=== PATIENT | male | born 1945 | race Caucasian/White ===

== ENCOUNTER 2019-06-21 09:30 | Inpatient (IN) | payer MEDICARE, BC ==
[2019-06-21] MEDS ORDERED: Sodium Chloride 0.9% 10 ML Syringe FLUSH PRN (13:51)
[2019-06-21] MEDS ORDERED: Pantoprazole 40 MG Vial IVPUSH SCH (14:00)
[2019-06-21 14:28] LABS: CHLORIDE,CL 99 mEq/L (98-106); SODIUM,NA 139 mEq/L (136-145)
[2019-06-21] MEDS ORDERED: Enoxaparin 40 MG/0.4 ML Syringe SUBCUT SCH (15:00)
[2019-06-21] MEDS: Clindamycin Phosphate in D5W 300 MG in Premix Bag 1 BAG IV SCH ×4 (15:02→20:59)
[2019-06-21] MEDS ORDERED: Furosemide 40 MG Tab PO SCH (16:00)
[2019-06-21] MEDS ORDERED: Polyvinyl Alcohol 1.4% Ophth Soln 15 ML Bottle ONE (16:12)
[2019-06-21] MEDS: Pantoprazole 40 MG Vial IVPUSH SCH (19:46)
[2019-06-21] MEDS: Metoprolol Tartrate 50 MG Tab PO SCH (19:48)
[2019-06-21] MEDS: Formoterol/Mometasone 200-5 MCG 8.8 GM Inhaler IH SCH (19:49)
[2019-06-21] MEDS ORDERED: Simvastatin 20 MG Tab PO SCH (20:00)
[2019-06-22] MEDS: Clindamycin Phosphate in D5W 300 MG in Premix Bag 1 BAG IV SCH ×4 (02:46→09:06)
[2019-06-22] MEDS ORDERED: Allopurinol 100 MG Tab PO SCH (08:00)
[2019-06-22] MEDS ORDERED: Citalopram 10 MG Tab PO SCH (08:00)
[2019-06-22] MEDS ORDERED: Polyvinyl Alcohol 1.4% Ophth Soln 15 ML Bottle EYEBOTH SCH (08:00)
[2019-06-22] MEDS ORDERED: SODIUM CHLORIDE EYEBOTH SCH (08:00)
[2019-06-22] MEDS ORDERED: Celecoxib 100 MG Cap PO SCH (08:00)
[2019-06-22] MEDS ORDERED: [UNRECOGNIZED DRUG - OTHER] EYEBOTH SCH (08:00)
[2019-06-22] MEDS ORDERED: Furosemide 40 MG Tab PO SCH (08:00)
[2019-06-22] MEDS ORDERED: Acetaminophen 500 MG Tab PO PRN (08:16)
--- NOTE | 2019-06-22 08:21 | PCM.DCSUM1 ---
Discharge Summary - Discharge Data Discharge Date: 06/22/19 Discharge Disposition: DC/Tfer to SNF 03 Condition: Good - Referral to Home Health Primary Care Physician: Chava Reed MD - Discharge Diagnosis/Problem(s) (1) Cellulitis of leg, right SNOMED Code(s): 389734339 ICD Code: L03.115 - CELLULITIS OF RIGHT LOWER LIMB Status: Acute (2) Morbidly obese SNOMED Code(s): 480673088 ICD Code: E66.01 - MORBID (SEVERE) OBESITY DUE TO EXCESS CALORIES Status: Acute - Patient Summary/Data Hospital Course: Armando is a 74 year old male who was admitted to the hospital 06/21/2019 with cellulitis of right thigh. Did have US completed of RLE which was negative for DVT. Labs completed this morning reveal WBC of 9.9 and CRP of 4.8. Patient was started on IV clindamycin. Will be discharged home on PO clindamycin QID x 7 days. Will have repeat lab work, including CBC, BMP, and CRP in 1 week. Recommend jail staff do cool compress to affected area TID. - Patient Instructions Diet: Usual Diet as Tolerated Activity: As Tolerated Notify Provider of: Fever, Increased Pain, Swelling and Redness - Discharge Plan *PRESCRIPTION DRUG MONITORING PROGRAM REVIEWED*: Not Applicable *COPY OF PRESCRIPTION DRUG MONITORING REPORT IN PATIENT ELIZABETH: Not Applicable Prescriptions/Med Rec: Clindamycin HCl 300 mg PO QID 7 Days #28 capsule Home Medications: Home Meds Allopurinol [Zyloprim] 100 mg PO DAILY 06/21/19 [History] Celecoxib 200 mg PO DAILY 06/21/19 [History] Citalopram [Citalopram HBr] 20 mg PO DAILY 06/21/19 [History] Dextran 70/Hypromellose [Artificial Tears] 1 drop EYEBOTH DAILY MDD 4 06/21/19 [ History] Fluticasone/Salmeterol [Advair 500-50] 1 puff INH BID 06/21/19 [History] Furosemide 80 mg PO DAILY 06/21/19 [History] Furosemide [Lasix] 40 mg PO DAILY 06/21/19 [History] L.acidoph,Paracasei, B.lactis [Probiotic] 10 mg PO BID 06/21/19 [History] Metoprolol Tartrate 50 mg PO BID 06/21/19 [History] Simvastatin [Zocor] 20 mg PO DAILY 06/21/19 [History] Sodium Chloride 5% [María 128 5% Ophth Oint] 1 strip EYEBOTH DAILY 06/21/19 [ History] Triamcinolone Acetonide [Triamcinolone Acetonide 0.1% Crm] 15 gm TOP BID [History] Clindamycin HCl 300 mg PO QID 7 Days #28 capsule 06/22/19 [Rx] Patient Handouts: Cellulitis, Adult, [id number] - Discharge Summary/Plan Comment DC Time >30 min.: No - General Info Date of Service: 06/22/19 Admission Dx/Problem (Free Text: Cellulitis Right lower extremity Morbidly Obese Subjective Update: Armando reports he is feeling fine today. Does complain of uncomfortable beds etc. Wishes to go back to [place]. No worsening of redness today. Has been afebrile. Functional Status: Reports: Pain Controlled, Tolerating Diet. Denies: New Symptoms - Review of Systems General: Denies: Fever Pulmonary: Reports: No Symptoms Cardiovascular: Reports: No Symptoms Gastrointestinal: Reports: No Symptoms Skin: Reports: Other (redness right thigh) Neurological: Reports: No Symptoms - Patient Data Vitals - Most Recent: Last Vital Signs Temp 98.3 F 06/22/19 04:00 Pulse 81 06/22/19 04:00 Resp 22 H 06/22/19 04:00 BP 117/47 L 06/22/19 04:00 Pulse Ox 98 06/22/19 04:00 Weight - Most Recent: 488 lb 8 oz I&O - Last 24 hours: Intake & Output 06/21/19 06/22/19 06/22/19 22:59 06:59 14:59 Intake Total 100 Balance 100 Lab Results - Last 24 hrs: Laboratory Results - last 24 hr 06/21/19 06/21/19 Range/Units 13:51 13:51 WBC 9.9 (5.0-10.0) 10^3/uL RBC 3.72 L (4.50-6.00) 10^6/uL Hgb 11.8 L (14.0-18.0) g/dL Hct 37.7 L (40.0-54.0) % MCV 101.3 H (82.0-94.0) fL MCH 31.7 (27.0-32.0) pg MCHC 31.3 L (33.0-38.0) g/dL RDW Coeff of Hugh 12.9 (11.0-15.0) % Plt Count 148 L (150-400) 10^3/uL Neut % (Auto) 72.7 (35-85) % Lymph % (Auto) 16.6 (10-55) % [place] % (Auto) 8.9 (0-16) % Eos % (Auto) 1.7 (0-5) % Baso % (Auto) 0.1 (0-3) % Neut # (Auto) 7.17 H (1.80-7.00) 10^3/uL Lymph # (Auto) 1.64 (1.00-4.80) 10^3/uL [place] # (Auto) 0.88 H (0.00-0.80) 10^3/uL Eos # (Auto) 0.17 (0.00-0.45) 10^3/uL Baso # (Auto) 0.01 10^3/uL Sodium 139 (136-145) mEq/L Potassium 4.2 (3.5-5.0) mEq/L Chloride 99 (98-106) mEq/L Carbon Dioxide 38 H (21-32) mmol/L BUN 26 H (7-18) mg/dL Creatinine 1.0 (0.7-1.3) mg/dL Est Cr Clr Drug Dosing 54.67 mL/min Estimated GFR (MDRD) > 60 (>=60) mL/min Glucose 103 H (75-99) mg/dL Calcium 8.5 (8.4-10.1) mg/dL C-Reactive Protein 4.8 H (0.2-0.8) mg/dL Med Orders - Current: Current Medications Allopurinol (Zyloprim) 100 mg PO DAILY [facility] Artificial Tears (Liquitears 1.4% Ophth Soln) 0 ml EYEBOTH DAILY [facility] Celecoxib (Celebrex) 200 mg PO DAILY [facility] Citalopram Hydrobromide (Celexa) 20 mg PO DAILY [facility] Enoxaparin Sodium (Lovenox) 40 mg SUBCUT Q24H [facility] Last Admin: 06/21/19 15:03 Dose: 40 mg Furosemide (Lasix) 80 mg PO DAILY [facility] Furosemide (Lasix) 40 mg PO DAILY@1600 [facility] Last Admin: 06/21/19 15:01 Dose: 40 mg Clindamycin Phosphate 300 mg/ (Premix) 50 mls @ 100 mls/hr IV Q6H [facility] Last Admin: 06/22/19 02:46 Dose: 100 mls/hr Metoprolol Tartrate (Lopressor) 50 mg PO BID [facility] Last Admin: 06/21/19 19:48 Dose: 50 mg Mometasone Furoate/Formoterol Fumar (Dulera 200-5 Mcg) 2 puff IH BID [facility] Last Admin: 06/21/19 19:49 Dose: 2 puff Non-Formulary Medication (Sodium Chloride 5% [María 128 5% Ophth Oint]) 1 strip EYEBOTH DAILY [facility] Pantoprazole Sodium (Protonix Iv) 40 mg IVPUSH 0800,2000 [facility] Last Admin: 06/21/19 19:46 Dose: Not Given Simvastatin (Zocor) 20 mg PO BEDTIME [facility] Last Admin: 06/21/19 19:39 Dose: 20 mg Sodium Chloride (Saline Flush) 10 ml FLUSH ASDIRECTED PRN PRN Reason: Keep Vein Open Discontinued Medications Artificial Tears (Liquitears 1.4% Ophth Soln) Confirm Administered Dose 15 ml .ROUTE .STK-MED ONE Stop: 06/21/19 16:13 Last Admin: 06/21/19 16:16 Dose: Not Given Pantoprazole Sodium (Protonix Iv) 40 mg IVPUSH Q12H [facility] Last Admin: 06/21/19 15:03 Dose: 40 mg - Exam Quality Assessment: Reports: DVT Prophylaxis General: Reports: Alert, Oriented, No Acute Distress Lungs: Reports: Clear to Auscultation, Normal Respiratory Effort Cardiovascular: Reports: Regular Rate, Regular Rhythm Extremities: Increased Warmth (right posterior thigh), Redness (right posterior thigh), Other (tenderness right posterior thigh) Wound/Incisions: Reports: Erythema Improving. Denies: Drainage Neurological: Reports: No New Focal Deficit Psy/Mental Status: Reports: Alert, Normal Affect, Normal Mood
[2019-06-22] MEDS: Metoprolol Tartrate 50 MG Tab PO SCH (08:48)
[2019-06-22] MEDS: Pantoprazole 40 MG Vial IVPUSH SCH (08:49)
[2019-06-22] MEDS: Formoterol/Mometasone 200-5 MCG 8.8 GM Inhaler IH SCH (09:06)
== END 2019-06-22 10:30 | DRG 603 ==
LOC: UNDOADMIN 09:30 → CC.MS 09:30
PROVIDERS: ADMIT Family Medicine; ATTEND Family Medicine
DX: L03.115 Cellulitis of right lower limb (principal); Z68.45 Body mass index [BMI] 70 or greater, adult; E66.01 Morbid (severe) obesity due to excess calories; J44.9 Chronic obstructive pulmonary disease, unspecified; M19.90 Unspecified osteoarthritis, unspecified site; M10.9 Gout, unspecified; G47.30 Sleep apnea, unspecified; R03.0 Elevated blood-pressure reading, without diagnosis of hypertension; Z88.1 Allergy status to other antibiotic agents; Z88.0 Allergy status to penicillin; Z88.8 Allergy status to other drugs, medicaments and biological substances; Z90.49 Acquired absence of other specified parts of digestive tract; Z90.89 Acquired absence of other organs; Z79.899 Other long term (current) drug therapy
CPT/HCPCS: 36415; 80048; 85025; 86140; 93971-RT; 94640; 94761; A9270-GY; C9113; J1650; J3490

== ENCOUNTER 2020-09-15 15:38 | Emergency (ER) | payer MEDICARE, BC, MEDICAID ==
--- NOTE | 2020-09-15 16:32 | EDM.PDOC ---
ED HPI GENERAL MEDICAL PROBLEM - General Chief Complaint: Neurological Problem Stated Complaint: Unresponsive Time Seen by Provider: 09/15/20 15:48 Source of Information: Reports: EMS, Family, Intermediate Records History Limitations: Reports: Altered Mental Status - History of Present Illness INITIAL COMMENTS - FREE TEXT/NARRATIVE: Armando is a 75 year old male who presents to the ED via EMS with lethargy. He currently resides at [facility]. Has reportedly been declining the last week, getting more and more weak. Per brother, who is POA, he reports since Tuesday it has been worse. Brother reports he has gotten more and more lethargic and has required more oxygen as the day progressed today, so he wanted him seen. He was seen by Dr. Reed on rounds on Tuesday. Did have lab work completed at that time, which revealed pancytopenia. Was recommended to have CT scan of his head at that time due to concerns for stroke with worsening confusion, however patient unable to fit in CT scanner due to morbid obesity. Brother and patient did not want to go to [place] for CT scan at that time, nor does his brother wish to proceed with that at this time. Brother relays that he is code 2. Brother feels he is unresponsive due to dose of hydroxyzine that was given to him on Tuesday. He reports he last received dose of that Tuesday for panic attack. Brother wishes for him to "get IV fluids to see if he comes around over the next few days." Upon arrival, patient is unresponsive to painful stimuli. BP and pulse stable. O2 92% on 10 L nonrebreather. Apparently has been requiring anywhere from 5-8 L of oxygen the last few days. Has been afebrile. Onset: Gradual Location: Reports: Generalized Associated Symptoms: Reports: Confusion, Shortness of Breath, Weakness. Denies: Chest Pain, Cough, cough w sputum, Diaphoresis, Fever/Chills, Loss of Appetite, Nausea/Vomiting, Rash, Seizure, Syncope - Related Data Allergies Allergy/AdvReac Type Severity Reaction Status Date / Time cefdinir Allergy Cannot Verified 09/15/20 17:45 Remember cephalexin Allergy Rash Verified 09/15/20 17:45 Penicillins Allergy Rash Verified 09/15/20 17:45 terazosin Allergy Dizziness Verified 09/15/20 17:45 Home Meds: Home Meds Citalopram [Citalopram HBr] 30 mg PO DAILY 06/21/19 [History] Dextran 70/Hypromellose [Artificial Tears] 1 drop EYEBOTH DAILY MDD 4 06/21/19 [History] Fluticasone/Salmeterol [Advair 500-50] 1 puff INH BID 06/21/19 [History] Furosemide 80 mg PO BID 06/21/19 [History] L.acidoph,Paracasei, B.lactis [Probiotic] 10 mg PO BID 06/21/19 [History] Metoprolol Tartrate 50 mg PO BID 06/21/19 [History] Simvastatin [Zocor] 20 mg PO DAILY 06/21/19 [History] Sodium Chloride 5% [María 128 5% Ophth Oint] 1 strip EYEBOTH DAILY 06/21/19 [History] allopurinoL [Zyloprim] 100 mg PO DAILY 06/21/19 [History] Fluticasone Propionate [Flonase Allergy Relief] 2 sprays NASBOTH ASDIRECTED 09/15/20 [History] Loratadine 10 mg PO DAILY 09/15/20 [History] guaiFENesin [Guaifenesin] 400 mg PO Q4H PRN 09/15/20 [History] guaiFENesin/Dextromethorphan [Tussin Dm Liquid] 10 ml PO Q4H PRN 09/15/20 [History] hydrOXYzine HCL [Hydroxyzine HCl] 25 mg PO TID PRN 09/15/20 [History] Past Medical History HEENT History: Reports: Other (See Below) Other HEENT History: Dry eye, Corneal injury (left), Cardiovascular History: Reports: Heart Failure, High Cholesterol, Hypertension Respiratory History: Reports: COPD, Sleep Apnea, SOB Other Respiratory History: Supplemental O2 (3L day, 7L night) Gastrointestinal History: Reports: Other (See Below) Other Gastrointestinal History: Morbid obesity Musculoskeletal History: Reports: Arthritis, Gout Psychiatric History: Reports: Depression Dermatologic History: Reports: Cellulitis - Infectious Disease History Infectious Disease History: Reports: MRSA Other Infectious Disease History: 07/20/19 Right leg wound - Past Surgical History GI Surgical History: Reports: Bariatric Procedure, Hernia, Abdominal, Hernia, Inguinal Male Surgical History: Reports: Cystectomy Social & Family History - Family History Family Medical History: Unobtainable - Alcohol Use Alcohol Use History: No ED ROS GENERAL - Review of Systems Review Of Systems: Unable To Obtain Reason Not Obtained: Unresponsive Constitutional: Reports: Weakness. Denies: Fever Respiratory: Reports: Shortness of Breath. Denies: Cough Cardiovascular: Reports: Edema Neurological: Reports: Confusion, Difficulty Walking Psychiatric: Reports: Anxiety - Physical Exam Exam: See Below Exam Limited By: Altered Mental Status General Appearance: Lethargic, Obese, Other (unresponsive to painful stimuli) Eye Exam: Bilateral Eye: PERRL Head Exam: Atraumatic, Normocephalic Neck: Supple Respiratory/Chest: Decreased Breath Sounds, Crackles, Prolonged Expiration Cardiovascular: Regular Rate, Rhythm, Other (distant heart tones) GI/Abdominal: Normal Bowel Sounds, Soft Neuro Exam (Abbreviated): Unresponsive Extremities: Pedal Edema (3+ pitting BLE) Skin Exam: Cool Course - Vital Signs Last Recorded V/S: Last Vital Signs Temp 96.7 F L 09/15/20 16:20 Pulse 67 09/15/20 16:20 Resp 12 09/15/20 16:20 BP 106/59 L 09/15/20 16:20 Pulse Ox 88 L 09/15/20 16:20 - Orders/Labs/Meds Orders: Active Orders 24 hr Category Date Time Status Chest 1V Frontal [CR] Stat Exams 09/15/20 15:50 Taken CULTURE BLOOD [BC] Stat Lab 09/15/20 16:11 Received CULTURE BLOOD [BC] Stat Lab 09/15/20 16:11 Received Blood Culture x2 Reflex Set [OM.PC] Stat Oth 09/15/20 15:51 Ordered EKG 12 Lead [EK] Stat Ther 09/15/20 15:49 Ordered Labs: Laboratory Tests 09/15/20 09/15/20 09/15/20 Range/Units 16:11 16:11 16:11 WBC 6.3 (5.0-10.0) 10^3/uL RBC 3.55 L (4.50-6.00) 10^6/uL Hgb 11.9 L (14.0-18.0) g/dL Hct 38.8 L (40.0-54.0) % MCV 109.3 H (82.0-94.0) fL MCH 33.5 H (27.0-32.0) pg MCHC 30.7 L (33.0-38.0) g/dL RDW Coeff of Hugh 15.5 H (11.0-15.0) % Plt Count 60 L (150-400) 10^3/uL Add Manual Diff Yes Neutrophils % (Manual) 60 (35-85) % Band Neutrophils % 8 H (0-5) % Lymphocytes % (Manual) 25 (21-55) % Monocytes % (Manual) 7 (2-12) % D-Dimer, Quantitative 0.85 H (0.00-0.50) Sodium 143 (136-145) mEq/L Potassium 5.2 H D (3.5-5.0) mEq/L Chloride 100 (98-106) mEq/L Carbon Dioxide 46 H* (21-32) mmol/L BUN 30 H (7-18) mg/dL Creatinine 1.1 (0.7-1.3) mg/dL Est Cr Clr Drug Dosing TNP Estimated GFR (MDRD) > 60 (>=60) mL/min Glucose 105 H D (75-99) mg/dL Lactic Acid (0.4-2.0) mmol/L Calcium 9.1 (8.4-10.1) mg/dL Total Bilirubin 1.5 H (0.0-1.0) mg/dL AST 22 (15-37) U/L ALT 20 (12-78) U/L Alkaline Phosphatase 184 H (46-116) U/L Lactate Dehydrogenase 175 (100-190) U/L Troponin I < 0.017 (0.00-0.06) ng/mL C-Reactive Protein 2.3 H (0.2-0.8) mg/dL NT-Pro-B Natriuret Pep 1227 H (0-1000) pg/mL Total Protein 7.8 (6.4-8.2) g/dL Albumin 3.2 L (3.4-5.0) g/dL 09/15/20 Range/Units 16:11 WBC (5.0-10.0) 10^3/uL RBC (4.50-6.00) 10^6/uL Hgb (14.0-18.0) g/dL Hct (40.0-54.0) % MCV (82.0-94.0) fL MCH (27.0-32.0) pg MCHC (33.0-38.0) g/dL RDW Coeff of Hugh (11.0-15.0) % Plt Count (150-400) 10^3/uL Add Manual Diff Neutrophils % (Manual) (35-85) % Band Neutrophils % (0-5) % Lymphocytes % (Manual) (21-55) % Monocytes % (Manual) (2-12) % D-Dimer, Quantitative (0.00-0.50) Sodium (136-145) mEq/L Potassium (3.5-5.0) mEq/L Chloride (98-106) mEq/L Carbon Dioxide (21-32) mmol/L BUN (7-18) mg/dL Creatinine (0.7-1.3) mg/dL Est Cr Clr Drug Dosing Estimated GFR (MDRD) (>=60) mL/min Glucose (75-99) mg/dL Lactic Acid 0.6 (0.4-2.0) mmol/L Calcium (8.4-10.1) mg/dL Total Bilirubin (0.0-1.0) mg/dL AST (15-37) U/L ALT (12-78) U/L Alkaline Phosphatase (46-116) U/L Lactate Dehydrogenase (100-190) U/L Troponin I (0.00-0.06) ng/mL C-Reactive Protein (0.2-0.8) mg/dL NT-Pro-B Natriuret Pep (0-1000) pg/mL Total Protein (6.4-8.2) g/dL Albumin (3.4-5.0) g/dL Meds: Medications Discontinued Medications Generic Name Dose Route Start Last Admin Trade Name Freq PRN Reason Stop Dose Admin Furosemide 40 mg 09/15/20 16:52 09/15/20 17:14 Lasix IVPUSH 09/15/20 16:53 40 mg ONETIME ONE Administration Sodium Chloride 1,000 mls @ 50 mls/hr 09/15/20 16:45 Sodium Chloride 0.45% IV ASDIRECTED ERIKA - Re-Assessments/Exams Free Text/Narrative Re-Assessment/Exam: 09/15/20 16:30 Talked with patient's brother regarding patient status. Do have concerns patient may have had a stroke, given unresponsiveness. Unable to proceed with CT scan locally due to patient's size. He is morbidly obese. Discussed with brother that we would have to transfer to [place] in order to proceed with CT scan to confirm this as cause of patient's unresponsiveness. Brother does not wish to do this. He wishes him to be kept comfortable. He feels that recent medications may be contributing to lethargy. He has reportedly been asking SNF staff to give him IVF as he feels that will help him. He wishes to try this to see if he "turns around." Reports they will decide to stop IVF if they feel they are not helping. Did discuss my concerns given CHF and risk for fluid overload. Departure - Departure Time of Disposition: 16:36 Disposition: Home, Self-Care 01 Condition: Poor Clinical Impression: Palliative care status, Morbidly obese, Hypoxia Altered mental status Qualifiers: Altered mental status type: unspecified Qualified Code(s): R41.82 - Altered mental status, unspecified - Discharge Information *PRESCRIPTION DRUG MONITORING PROGRAM REVIEWED*: Not Applicable *COPY OF PRESCRIPTION DRUG MONITORING REPORT IN PATIENT ELIZABETH: Not Applicable Referrals: Chava Reed MD [Primary Care Provider] - Forms: ED Department Discharge Additional Instructions: - 1/2 NS to infuse at 20 mls/hr x 72 hours. May discontinue sooner if family wishes to stop care. - Continue to keep oxygen in place. Currently on 15 L Non-rebreather - Family wishes to keep patent comfortable but requests IVF for the next 72 hours Sepsis Event Note (ED) - Focused Exam Vital Signs: Vital Signs Temp Pulse Resp BP Pulse Ox 09/15/20 16:20 96.7 F L 67 12 106/59 L 88 L 09/15/20 16:17 97.1 F 67 11 L 113/67 90 L 09/15/20 15:40 95 F L 66 12 125/78 89 L - Problem List & Annotations (1) Palliative care status SNOMED Code(s): 575153821 Code(s): Z51.5 - ENCOUNTER FOR PALLIATIVE CARE Status: Acute (2) Congestive heart failure SNOMED Code(s): 82171431 Code(s): I50.9 - HEART FAILURE, UNSPECIFIED Status: Acute (3) Hypercapnemia SNOMED Code(s): 40162590 Code(s): R06.89 - OTHER ABNORMALITIES OF BREATHING Status: Acute (4) Altered mental status SNOMED Code(s): 084932231 Code(s): R41.82 - ALTERED MENTAL STATUS, UNSPECIFIED Status: Acute Qualifiers: Altered mental status type: unspecified Qualified Code(s): R41.82 - Altered mental status, unspecified (5) Hypoxia SNOMED Code(s): 330831612 Code(s): R09.02 - HYPOXEMIA Status: Acute (6) Morbidly obese SNOMED Code(s): 050146838 Code(s): E66.01 - MORBID (SEVERE) OBESITY DUE TO EXCESS CALORIES Status: Acute - Problem List Review Problem List Initiated/Reviewed/Updated: Yes - My Orders Last 24 Hours: My Active Orders 09/15/20 15:49 EKG 12 Lead [EK] Stat 09/15/20 15:50 Chest 1V Frontal [CR] Stat 09/15/20 15:51 Blood Culture x2 Reflex Set [OM.PC] Stat 09/15/20 16:11 CULTURE BLOOD [BC] Stat CULTURE BLOOD [BC] Stat - Assessment/Plan Last 24 Hours: My Active Orders 09/15/20 15:49 EKG 12 Lead [EK] Stat 09/15/20 15:50 Chest 1V Frontal [CR] Stat 09/15/20 15:51 Blood Culture x2 Reflex Set [OM.PC] Stat 09/15/20 16:11 CULTURE BLOOD [BC] Stat CULTURE BLOOD [BC] Stat Assessment:: Palliative Care Status Altered Mental Status Congestive Heart Failure Hypercapnia Morbid Obesity Hypoxia Plan: Brother wishes to continue with palliative care at this time. Does not wish to transfer to higher level of care for further workup/treatment. He wishes to have patient return to [facility] on comfort cares and try IVF for the next few days. He is hopeful that the hydroxyzine has caused him to be lethargic and wishes to give him time for the medication to wear off. Did discuss this with Dr. Reed. We do not feel this medication, last given on Tuesday, would cause this and have concerns for CVA. Are unable to confirm CVA due to inability to complete CT due to patient's size. Discussed my concerns with ongoing IVF and worsening heart failure. Brother verbalized understanding and wishes to try IVF. Will give p atient dose of IV Lasix prior to discharge and dose IVF at 20 mls/hr the next 72 hours or until family wishes to stop treatment. Continue with oxygen as needed in effort to maintain oxygen sats. Patient will be discharged back to [facility] on comfort cares. Did discuss with brother my concerns that patients condition is very guarded and without intervention he is likely end of life. Brother verbalized understanding and wishes to proceed with discharge back to [facility] palliative care status. [facility] staff to notify us if need for any further medications to keep patient comfortable.
[2020-09-15 16:45] LABS: CHLORIDE,CL 100 mEq/L (98-106); SODIUM,NA 143 mEq/L (136-145)
[2020-09-15] MEDS ORDERED: Sodium Chloride 0.45% 1,000 ML IV SCH (16:45)
[2020-09-15] MEDS ORDERED: Furosemide 40 MG/4 ML VIAL IVPUSH ONE (16:52)
== END 2020-09-15 17:00 | disposition home or self-care (01) ==
LOC: CC.ED 15:38
DX: R41.82 Altered mental status, unspecified (principal); R09.02 Hypoxemia; I11.0 Hypertensive heart disease with heart failure; I50.9 Heart failure, unspecified; E78.00 Pure hypercholesterolemia, unspecified; J44.9 Chronic obstructive pulmonary disease, unspecified; M10.9 Gout, unspecified; E66.01 Morbid (severe) obesity due to excess calories; Z68.45 Body mass index [BMI] 70 or greater, adult; Z51.5 Encounter for palliative care; Z88.1 Allergy status to other antibiotic agents; Z88.0 Allergy status to penicillin; Z79.899 Other long term (current) drug therapy
CPT/HCPCS: 36415; 71045; 80053; 83605; 83615; 83880; 84484; 85025; 85379; 86140; 87040; 93005; 96374; 99284; 99285-25; J1940